=== PATIENT | female | born 1950 | race Caucasian/White ===

== ENCOUNTER 2017-05-30 10:43 | Day surgery (SDC) | payer MEDICARE, OTHER ==
[~2017-05-30] VITALS: Ht 152.4 cm; Wt 73.6 kg
--- NOTE | ~2017-05-30 | OP ---
PATIENT NAME: NISHA HOPKINS MEDICAL RECORD: [id number] :54 LOCATION:D[facility] ADMISSION DATE: SURGEON: WILIAM PARSON DO DATE OF OPERATION: 05/30/2017 PROCEDURE: Colonoscopy. INDICATIONS: Family history positive for colon cancer in her brother and a history of colon polyps. SCOPE: [employer]ot[employer] video pediatric colonoscope. MEDICATIONS: Propofol 300 mg IV per anesthesia. WITHDRAWAL TIME: 8 minutes. ESTIMATED BLOOD LOSS: None. COMPLICATIONS: None. FINDINGS: Informed consent was given. The patient was made comfortable with the above medication. After reaching an adequate level of sedation by slow IV push, the patient was placed on her left side. A digital rectal examination was performed and revealed some small nonbleeding external hemorrhoids. The endoscope was then advanced under direct visualization through the rectum to the cecum with visualization of the appendiceal orifice and ileocecal valve. The scope was slowly withdrawn. The mucosa was carefully examined. The prep was fair to good. There were no polyps visualized on this examination. There were no diverticula or other abnormalities. Retroflexion was performed in the rectum with normal appearing rectal wall. The scope was completely withdrawn from the patient. The patient tolerated the procedure well and there were no complications. IMPRESSION: Small nonbleeding external hemorrhoids on digital rectal examination, otherwise normal colonoscopy. PLAN AND RECOMMENDATIONS: 1. Discharge home when recovery parameters are met. 2. Continue current diet. 3. Continue current medications. 4. Repeat colonoscopy in 5 years regarding her personal history of colon polyps and a family history of colon cancer in her brother. TRANSINT:[id number] Voice Confirmation ID: [id number] DOCUMENT ID: [id number] WILIAM PARSON DO CC: [id number] DICTATION DATE: 05/30/17 1407 PHOTOGRAPH MOUNTER: 05/30/17 1945 [facility] 05/30/17 [place] [address]
[2017-05-30 11:28] LABS: HEMATOCRIT 45.3 % (36.0-48.0); HEMOGLOBIN 15.7 g/dL (12-16); MCH 31.4 pg (26.0-34.0); MCHC 34.7 g/dL (31.0-37.0); MCV 90.6 fL (80.0-100.0); MEAN PLATELET VOLUME 9.4 fL (7.4-10.4); WBC 8.1 10x3/uL (4.8-10.8)
[2017-05-30] MEDS ORDERED: TIROSINT13 MCG PO (12:08)
[2017-05-30] MEDS ORDERED: ZOCOR20 MG PO (12:08)
[2017-05-30] MEDS ORDERED: CHILDREN'S ASPI81 MG PO (12:09)
[2017-05-30 12:10] VITALS: BP 142/78; Ht 152.4 cm; Wt 73.6 kg
--- NOTE | 2017-05-30 15:00 | NUR ---
1500 DISCHARGE INSTRUCTIONS GIVEN. NO QUESTIONS OR CONCERNS AT THIS TIME. ESCORTED OUT BY VOLUNTEER.
== END 2017-05-30 15:00 | disposition home or self-care (01) ==
LOC: D.OPS 10:43
PROVIDERS: Anesthesiology
DX: Z12.11 Encounter for screening for malignant neoplasm of colon (principal); Z86.010 Personal history of colon polyps; K21.9 Gastro-esophageal reflux disease without esophagitis; E03.9 Hypothyroidism, unspecified; Z01.812 Encounter for preprocedural laboratory examination; Z80.0 Family history of malignant neoplasm of digestive organs